=== PATIENT | male | born 2005 | race Caucasian/White ===

== ENCOUNTER 2023-03-03 05:19 | Emergency (ER) | payer MEDICAID, SELFPAY ==
[2023-03-03 05:20] VITALS: BP 134/78; PULSE 87; RESP 18; TEMP 37; O2SAT 100; BMI 18.2
--- NOTE | 2023-03-03 06:23 | EX.ED.UPPERE ---
HPI History of Present Illness Chief Complaint: Laceration Informant: patient Onset/Context/Timing Onset: Yesterday Narrative Narrative: Patient presents secondary to laceration to the distal aspect of the left thumb. Approximately 18 hours ago he was using a knife to cut a stick when he accidentally cut the end of his left thumb. Family states it seems to keep bleeding anytime he tries to use it. Tetanus is up-to-date. He is right-hand dominant. Tetanus Immunization: <5 years PFSH PFS Medical History Encounter for screening for COVID-19 URI (upper respiratory infection) Home Medications NK 03/03/23 [History Last Taken Unknown] Allergy/AdvReac Type Severity Reaction Status Date / Time martinez flavor Allergy Rash Verified 03/03/23 05:27 Family History Other Cancer Social History Smoking Status: Never smoker ROS ROS ED Constitutional Constitutional ED: Denies chills or fever(s) Eyes Eyes: Denies change in vision or discharge from eye(s) ENT ENT ED: Denies discharge from eye(s), rhinorrhea or sore throat Cardiovascular Cardiovascular: Denies chest pain Respiratory/Chest Respiratory/Chest: Denies cough or dyspnea Gastrointestinal Gastrointestinal: Denies abdominal pain, nausea or vomiting Musculoskeletal Musculoskeletal: Reports extremity pain; Denies back pain Integumentary Reports other Details: Laceration left thumb ; Denies Abrasions or rash Neurologic Neurologic: Denies headache(s), paresthesias or weakness Psychiatric Psychiatric: Denies anxiety or depression Allergic/Immunologic Allergic/Immunologic ED: Denies lip swelling or urticaria EXAM Physical Exam Const Vital Signs: 03/03/23 05:20 Temperature 98.6 F Temperature Source Temporal Pulse Rate 87 Respiratory Rate 18 Blood Pressure 134/78 H Blood Pressure Mean 96 Pulse Ox 100 Oxygen Delivery Method Room Air Positive well nourished and well developed General Appearance ED: well developed HEENT Reports moist mucous membranes Eyes PERRL and EOMs intact bilaterally Neck full ROM Resp normal respiratory effort and clear to auscultation bilaterally Cardio regular rate and regular rhythm GI non-tender Neuro oriented x3, moves all extremities, no focal motor deficits and no sensory deficits noted Skin Skin Narrative: 1 cm long superficial laceration to the distal aspect of the left thumb. No active bleeding at this time. Full range of motion with good cap refill and sensation. MDM MDM MDM Narrative Medical decision making narrative: Wound was thoroughly cleansed. He had no bleeding from the wound with vigorous cleaning. A piece of [place] was placed over the end of the finger and wrapped with gauze dressing. Patient's had no further bleeding at this time. Because he presents 18 hours after the initial injury he will not receive sutures. Wound care is discussed. Discharge Plan Triage Chief Complaint: Laceration ED Provider: Edilma Turner Dx/Rx/DC Orders Clinical Impression: Laceration of left thumb Instructions: ED Laceration, Old: Not Sutured Prescriptions: No Action NK Primary Care Provider: Care Physician,No Primary Referrals: Ingrid Matt MD [Med Staff - Social Worker Assistant] - As Needed Care Physician,No Primary [Primary Care Provider] - Disposition Disposition: Home, Self Care
[2023-03-03 06:41] VITALS: BP 133/70; PULSE 78; RESP 18
== END 2023-03-03 06:42 | disposition home or self-care (01) ==
LOC: ED 06:31
PROVIDERS: Emergency Provider Emergency Medicine; Visit Provider Emergency Medicine
DX: S61.012A Laceration without foreign body of left thumb without damage to nail, initial encounter (principal); W26.0XXA Contact with knife, initial encounter; Y93.89 Activity, other specified
CPT/HCPCS: 99282